=== PATIENT | female | born 1985 | race Caucasian/White ===

== ENCOUNTER 2017-01-30 12:15 | Emergency (ER) | payer SELFPAY ==
[2017-01-30 12:21] VITALS: BP 137/70
--- NOTE | 2017-01-30 12:59 | ER Document Report ---
ED General - General Chief Complaint: Neck Injury Stated Complaint: NECK PAIN Time Seen by Provider: 01/30/17 12:36 Mode of Arrival: Ambulatory Information source: Patient TRAVEL OUTSIDE OF THE [place] IN LAST 30 DAYS: No - HPI Patient complains to provider of: paracervical pain left Onset: Last week Onset/Duration: Gradual Quality of pain: Achy Severity: Mild Associated symptoms: None Similar symptoms previously: No - Related Data Allergies/Adverse Reactions: codeine [Codeine] Allergy (Verified 09/03/12 12:25) Past Medical History - General Information source: Patient - Social History Smoking Status: Current Every Day Smoker Chew tobacco use (# tins/day): No Frequency of alcohol use: None Drug Abuse: None Family History: Reviewed & Not Pertinent Patient has suicidal ideation: No Patient has homicidal ideation: No Renal/ Medical History: Denies: Hx Peritoneal Dialysis Past Surgical History: Reports: Hx Appendectomy, Hx Tubal Ligation - Immunizations Hx Diphtheria, Pertussis, Tetanus Vaccination: Yes Review of Systems - Review of Systems Constitutional: No symptoms reported EENT: No symptoms reported Cardiovascular: No symptoms reported Respiratory: No symptoms reported Gastrointestinal: No symptoms reported Musculoskeletal: Muscle pain, Muscle stiffness - Left paracervical left parathoracic not midline Physical Exam - Vital signs Vitals: Temp Pulse Resp BP Pulse Ox 98.5 F 82 17 137/70 H 98 01/30/17 12:18 01/30/17 12:18 01/30/17 12:18 01/30/17 12:18 01/30/17 12:18 - General General appearance: Appears well, Alert - HEENT Head: Normocephalic, Atraumatic - Respiratory Respiratory status: No respiratory distress - Cardiovascular Rhythm: Regular - Back Back: Normal - No midline cervical thoracic and lumbosacral tenderness. Patient has paracervical parathoracic muscle strain on the left associated with spasm. Radial ulnar axillary median nerve intact no focal neurological deficit - Extremities General upper extremity: Normal inspection Course - Re-evaluation Re-evalutation: 01/30/17 13:01 Patient presents the emergency department chief complaint of a slip on the other day and have pain in the neck. Patient says her child has been in the bed with her she woke up in the patella was out from underneath her head she has not had a cervical strain ever since. She has not taken anything for it at home she is moving her upper body and torso as a unit and is getting more stiff and sore. She tried some Motrin without relief she denies any injury or history of injury or surgery previously paracervical parathoracic on the left not midline no neurological or vascular deficits. Going to discharge her with a prescription for Robaxin massage and heat gave her the information for family doctor for follow-up and discussed reasons for ED return sooner - Vital Signs Vital signs: Temp Pulse Resp BP Pulse Ox 98.5 F 82 17 137/70 H 98 01/30/17 12:18 01/30/17 12:18 01/30/17 12:18 01/30/17 12:18 01/30/17 12:18 Discharge - Discharge Clinical Impression: cervical strain Condition: Stable Disposition: HOME, SELF-CARE Additional Instructions: Neck Injury (Cervical Strain) You have a neck strain. This is an injury to the muscles and ligaments in the neck. There is no evidence of a fracture of the neck bones. Also, no injury to the spinal cord or nerve roots was detected. Usually, stiffness and pain INCREASE for the first 24-48 hours after the injury. The pain will gradually resolve and the neck will become more mobile. Most patients are back at work or school within a few days. Typically, complete healing takes about two or three weeks. The usual initial treatment is rest and cold packs. A neck collar may be placed to keep the muscles of the neck at rest. Antiinflammatory and muscle relaxing medication are often used to reduce the spasm and irritation. You should call the doctor, or go to the hospital, if you develop numbness or weakness in any extremity, problems with your bladder or bowel, or pain radiating down the arms. Prescriptions: Methocarbamol [Robaxin 500 mg Tablet] 500 mg PO BID #12 tablet Referrals: [facility] [Provider Group] - Follow up in 3-5 days
== END 2017-01-30 13:10 | disposition home or self-care (01) ==
LOC: ER 12:15
DX: S16.1XXA Strain of muscle, fascia and tendon at neck level, initial encounter (principal); M54.2 Cervicalgia; F17.200 Nicotine dependence, unspecified, uncomplicated; X58.XXXA Exposure to other specified factors, initial encounter
CPT/HCPCS: 99283